=== PATIENT | female | born 1995 | race Caucasian/White ===

== ENCOUNTER → 2019-06-03 15:52 | Outpatient (CLI) | payer OTHER ==
[2016-05-13 06:46] VITALS: BMI 23.5
[~2019-06-03 15:52] MED LIST: IBUPROFEN600 MG PO; PERCOCET 5-3251 TAB PO; PRENATAL COMPLE1 TAB PO
== END | disposition home or self-care (01) ==
LOC: D.LDO 15:52
PROVIDERS: ATTEND Student in an Organized Health Care Education/Training Program
DX: O36.5990 Maternal care for other known or suspected poor fetal growth, unspecified trimester, not applicable or unspecified (principal)

== ENCOUNTER → 2019-06-08 17:31 | Outpatient (CLI) | payer OTHER ==
[2016-05-13 06:46] VITALS: BMI 23.5
== END | disposition home or self-care (01) ==
LOC: D.LDO 17:31
PROVIDERS: ATTEND Student in an Organized Health Care Education/Training Program
DX: O36.8130 Decreased fetal movements, third trimester, not applicable or unspecified (principal); Z3A.36 36 weeks gestation of pregnancy

== ENCOUNTER 2019-06-09 19:24 | Outpatient (CLI) | payer OTHER ==
[2016-05-13 06:46] VITALS: BMI 23.5
== END 2019-06-09 20:16 | disposition home or self-care (01) ==
LOC: D.LDO 19:24
PROVIDERS: ATTEND Obstetrics & Gynecology
DX: O36.5990 Maternal care for other known or suspected poor fetal growth, unspecified trimester, not applicable or unspecified (principal); Z3A.00 Weeks of gestation of pregnancy not specified

== ENCOUNTER → 2019-06-17 16:15 | Outpatient (CLI) | payer OTHER ==
[2016-05-13 06:46] VITALS: BMI 23.5
== END | disposition home or self-care (01) ==
LOC: D.LDO 16:15
PROVIDERS: ATTEND Student in an Organized Health Care Education/Training Program
DX: O36.5930 Maternal care for other known or suspected poor fetal growth, third trimester, not applicable or unspecified (principal); Z3A.34 34 weeks gestation of pregnancy

== ENCOUNTER → 2019-07-08 20:45 | Outpatient (CLI) | payer OTHER ==
[2016-05-13 06:46] VITALS: BMI 23.5
== END ==
LOC: D.LDO 20:45
PROVIDERS: ATTEND Obstetrics & Gynecology
DX: O36.5930 Maternal care for other known or suspected poor fetal growth, third trimester, not applicable or unspecified (principal); Z3A.37 37 weeks gestation of pregnancy

== ENCOUNTER 2019-07-14 05:06 | Inpatient (IN) | payer OTHER ==
[2019-07-14] VITALS (12 sets, daily range): BP systolic 98–114; BP diastolic 57–75; Ht 165.1 cm; Wt 72.1 kg
[~2019-07-14] VITALS: Ht 165.1 cm; Wt 72.1 kg
--- NOTE | ~2019-07-14 | OP ---
PATIENT NAME: BRANDY FOSTER MEDICAL RECORD: [id number] :[birth year] LOCATION:[place] D.1223 ADMISSION DATE:07/14/19 SURGEON: ALEXSANDRA HER DO DATE OF OPERATION: 07/14/2019 PREOPERATIVE DIAGNOSIS: Intrauterine growth restriction, previous section. POSTOPERATIVE DIAGNOSES: 1. Intrauterine growth restriction, previous section. 2. Intra-abdominal adhesions. PRIMARY SURGEON: Alexsandra Her DO ANESTHESIA: Spinal. PROCEDURE: Repeat low transverse section via Pfannenstiel incision. FINDINGS: Female , weight 5 pounds, Apgars 8 and 9, born at 0810. Normal appearing placenta, normal appearing uterus, bilateral fallopian tubes, bilateral ovaries. Extensive adhesions of the uterus to the anterior abdominal wall. SPECIMENS: Placenta and cord. ESTIMATED BLOOD LOSS: 900 cc. IV FLUIDS: 1800 cc. URINE OUTPUT: 525 cc of clear urine. COMPLICATIONS: None. CONDITION: Stable. DESCRIPTION OF PROCEDURE: The risks, benefits, alternatives and indications of the procedure were discussed with the patient. She voiced understanding of the procedure and signed the consent. She was taken to the OR where spinal anesthesia was administered and found to be adequate. She was placed in the dorsal supine position with leftward tilt. She was prepped and draped in normal sterile fashion. A Pfannenstiel skin incision was made with a scalpel and carried down to the underlying layer of the fascia with the Bovie. Fascia was incised at the midline and extended laterally. The inferior aspect of the fascial incision was grasped with Sunil clamps and the rectus muscle was dissected off sharply. Attention was then turned to the superior aspect of the fascial incision. The rectus muscle was dissected off in a similar fashion. The rectus muscle was in the midline down to the level of the peritoneum. The peritoneum was identified and noted to be free of adherent bowel and entered bluntly. There were extensive adhesions of the anterior uterus to the anterior abdominal wall, which were dissected off with a combination of blunt and sharp dissection. A bladder flap was created and a bladder blade was then inserted. The uterus was incised in a transverse fashion in the lower uterine segment. The incision was extended with cephalad caudad traction. The 's head was brought to the incision and the infant delivered without difficulty. Mouth and nose were suctioned. Cord was clamped OPERATIVE REPORT [id number] BRANDY FOSTER and paulo. The infant was handed off to waiting pediatricians. The placenta was manually removed. The uterus was exteriorized and a moist lap was used to assure complete removal of placenta membranes. The hysterotomy was closed with 0 Vicryl in a running locked fashion with good hemostasis. The adhesions of the anterior uterus to the anterior abdominal wall were noted to be bleeding and were ligated with suture and fibrillar was placed for hemostasis. Good hemostasis was noted. Uterus, tubes, and ovaries were noted to be normal and the posterior cul-de-sac was irrigated with warm sterile water. The uterus, tubes and ovaries were returned back to the abdominal cavity. The hysterotomy was reinspected and noted to be hemostatic. A moist laparotomy sponge was used to assure complete removal of blood clots and fluid from the abdominal cavity. The rectus muscle was closed with 2-0 Monocryl in a running fashion with good hemostasis. The fascial incision was closed with 0 Vicryl in a running fashion with good hemostasis, the subcutaneous fat was closed with 2-0 plain suture. The skin was closed in a subcutaneous fashion with 3-0 Monocryl with Dermabond covering. All needle, lap, sponge, and instrument counts were correct times 2. The patient tolerated the procedure well and she was taken to the recovery room in stable condition. TRANSINT:[id number] Voice Confirmation ID: [id number] DOCUMENT ID: [id number] ALEXSANDRA HER DO CC: [id number] DICTATION DATE: 07/14/19913 STATEMENT PROCESSOR: 07/14/19 1342 ADM IN [facility] [id number] [place] [address]
[2019-07-14 06:13] LABS: HEMATOCRIT 33.9 % (36.0-48.0); HEMOGLOBIN 11.1 g/dL (12-16); MCH 28.6 pg (26.0-34.0); MCHC 32.7 g/dL (31.0-37.0); MCV 87.4 fL (80.0-100.0); MEAN PLATELET VOLUME 11.1 fL (7.4-10.4); RBC 3.88 10x6/uL (4.00-5.40); RDW 13.5 % (11.5-14.5); WBC 13.2 10x3/uL (4.8-10.8)
--- NOTE | 2019-07-14 06:40 | NUR ---
ania (PJ) here for pre op teaching
--- NOTE | 2019-07-14 09:30 | NUR ---
0910 RECEIVED PATIENT AWAKE AND ALERT. FUNDUS 1 FINGERWIDTH BELOW UNBILICUS, FIRM AMD MIDLINE. ICE PACK PLACE ON INCISION SITE.
--- NOTE | 2019-07-14 09:58 | NUR ---
RECEIVED PT FROM VIA BED TO ROOM 1223. BED LOCKED AND PLACED IN LOW POSITION. PT AWAKE, AAO X 3. VSS. HRRR WITHOUT AUDIBLE MURMUR. BBS CLEAR. BS HYPOACTIVE X 4. ABDOMEN SOFT/NON-DISTENDED. FUNDUS FIRM AT U/1. RUBRA LOCHIA SMALL AMT. SMALL DIME SIZED CLOT NOTED ON PERIPAD. NEG HOMANS' SIGN. PPP. NO EDEMA NOTED TO BLE. SCDS ON BLE. PUMP ON. GRANT TO GRAVITY DRAINING DARK, YELLOW URINE. PIV SITE CLEAR TO RIGHT HAND. NS WITH PITOCIN INFUSING AT 125 ML/HR. PT C/O INCISIONAL PAIN OF "7" ON 0-10 PAIN SCALE. ABDOMINAL DRESSING DRY WITH CIRCLED AREA OF DRAINAGE NOTED. ICE PACK TO INCISION. PT ORIENTED TO ROOM, BED, AND CALL LIGHT. SR UP X2. CALL LIGHT IN REACH.
--- NOTE | 2019-07-14 10:05 | NUR ---
PT C/O INCISIONAL PAIN OF "7" ON 0-10 PAIN SCALE. TORADOL 30 MG GIVEN SIVP OVER 2 MINUTES. PT INSTRUCTED ON MED. VERBALIZES UNDERSTANDING.
--- NOTE | 2019-07-14 10:40 | NUR ---
PT DENIES NAUSEA. STATES PAIN NOW "4" ON 0-10 PAIN SCALE. REQUESTS AND RECEIVES [place]ON [place] [employer] [place].
--- NOTE | 2019-07-14 11:15 | NUR ---
PT IN SEMI-PALOMARES'S POSITION IN BED. HOLDS WITH MUCH WARMTH SHOWN. VSS. STATES PAIN NOW "4" ON 0-10 PAIN SCALE. DENIES NEEDS OR C/O.
--- NOTE | 2019-07-14 12:00 | NUR ---
PT SITTING UP IN BED. HOLDS WITH MUCH WARMTH SHOWN. DENIES NEEDS OR C/O.
--- NOTE | 2019-07-14 13:18 | NUR ---
PT SITTING UP IN BED. CONSUMING CLEAR LIQUID DIET. TOLERATING WELL. VSS. PT DENIES C/O OR NEEDS. STATES PAIN NOW "3" ON 0-10 PAIN SCALE. DECLINES PAIN MED AT THIS TIME. STATES "I WILL WAIT".
--- NOTE | 2019-07-14 14:03 | NUR ---
PT CHIEF DESIGN ENGINEER LIGHT. REQUESTS AND RECEIVES MORPHINE 4 MG SIVP OVER 2 MINUTES FOR C/O INCISIONAL PAIN OF "7" ON 0-10 PAIN SCALE. PT INSTRUCTED ON MED. VERBALIZES UNDERSTANDING.
--- NOTE | 2019-07-14 14:28 | NUR ---
PT SITTING UP IN BED. ATTEMPTING TO BREASTFEED AT THIS TIME. STATES PAIN MEDICATION STARTING TO RELIEVE PAIN.
--- NOTE | 2019-07-14 15:31 | NUR ---
PT LYING IN SEMI-PALOMARES'S POSITION. WAKES UPON ENTERING ROOM. STATES PAIN NOW "3" ON 0-10 PAIN SCALE. DENIES NEEDS OR C/O.
--- NOTE | 2019-07-14 17:00 | NUR ---
VSS. FUNDUS FIRM AT U/1. ERIN HEATH AMT. PERICARE DONE. CHUX AND PERIPAD CHANGED. I/O COMPLETED.
--- NOTE | 2019-07-14 17:08 | NUR ---
PT C/O INCISIONAL PAIN OF "8" ON 0-10 PAIN SCALE. TORADOL 30 MG GIVEN SIVP OVER 2 MINUTES. PT INSTRUCTED ON MED. VERBALIZES UNDERSTANDING. VSS.
--- NOTE | 2019-07-14 18:30 | NUR ---
DR GARLAND NOTIFIED THAT DR MARTINEZ DID NOT PUT IN ORDERS TO DC GRANT, SL IV, START PO PAIN MEDS, ETC PER HER ROUTINE ORDERS. ORDERS RECEIVED.
--- NOTE | 2019-07-14 18:30 | NUR ---
PT SITTING UP IN BED. CARING FOR INFANT. STATES PAIN MED RELIEVING PAIN. DECLINES ADDITIONAL PAIN MED AT THIS TIME.
--- NOTE | 2019-07-14 19:00 | NUR ---
reCEIVED REPORT FROM FELTON RUIZ
--- NOTE | 2019-07-14 19:48 | NUR ---
PT C/O PAIN AT INCISION SITE RATED A 9. MORPHINE 4 MG GIVEN IV
--- NOTE | 2019-07-14 19:50 | NUR ---
MORPHINE 4 MG GIVEN IV FOR PAIN. ASSESSMENT COMPLETED. HEART SOUNDS WNL, LUNGS CLEAR,BOWEL SOUNDS FAINT. FUNDUS IS FIRM ONE BELOW. LOCHIA SMALL. DRESSING DRY AND INTACT. PT IV IN THE RIGHT ARM RUNNING at 100ml/hr IS AT BEDSIDE. GRANT CATHETER DRAINING PINK URINE.
--- NOTE | 2019-07-14 21:00 | NUR ---
RESTING WELL. STATES SHE STILL HAS PAIN.
[2019-07-15] VITALS: BP 118/67
--- NOTE | 2019-07-15 | NUR ---
PT RECEIVED 4 MG MORPHINE FOR PAIN. VS STABLE. IV HAS BEEN SALINE LOCKED. GRANT STILL IN PLACE. NO OTHER ISSUES BUT PAIN AT THIS TIME.
--- NOTE | 2019-07-15 02:00 | NUR ---
PT TRYING TO REST. STILL WITH PAIN.
[2019-07-15 04:00] VITALS: BP 97/59
--- NOTE | 2019-07-15 04:00 | NUR ---
PAIN MEDS GIVEN MORPHINE 4 MF IV. GRANT CATHETER REMOVED. PT AMBULATED TO THE BATHROOM BUT DIDN'T NEED TO GO. BACK TO BED. MOVING WAS VERY PAINFUL FOR HER. DRESSING DRY AND INTACT. FUNDUS FIRM. PT WAS CLEANED UP WITH WARM WASHCLOTHES AND A NEW PAD APPLIED.JUDHIA SMALL.
--- NOTE | 2019-07-15 05:30 | NUR ---
PT UP AGAIN TO TRY TO VOID. WALKED TO BR. UNABLE TO VOID AT THIS TIME.
[2019-07-15 06:36] LABS: BASOPHILS 0.2 % (0-2); EOSINOPHILS 0.8 % (0-7); HEMATOCRIT 28.8 % (36.0-48.0); HEMOGLOBIN 9.1 g/dL (12-16); IMMATURE GRANULOCYTES 0.3 % (0-5); LYMPHOCYTES 19.2 % (15-50); MCH 27.9 pg (26.0-34.0); MCHC 31.6 g/dL (31.0-37.0); MCV 88.3 fL (80.0-100.0); MEAN PLATELET VOLUME 10.4 fL (7.4-10.4); MONOCYTES 7.2 % (2-11); NEUTROPHILS 72.3 % (40-80); RBC 3.26 10x6/uL (4.00-5.40); RDW 13.4 % (11.5-14.5); WBC 11.6 10x3/uL (4.8-10.8)
[2019-07-15 06:37] LABS: PLATELET COUNT 193 10x3/uL (130-400)
[2019-07-15 07:13] LABS: RAPID PLASMA REAGIN Non Reactive (Non Reactive)
[2019-07-15 07:45] VITALS: BP 138/84
--- NOTE | 2019-07-15 07:54 | NUR ---
DR. MARTINEZ IN ROOM SPEAKING WITH PT. Keren MAHMOOD, FELTON INFORMS MD OF PT'S C/O PAIN EVEN WITH THE MORPHINE.
--- NOTE | 2019-07-15 09:25 | MORECARE ---
CASE MANAGEMENT DISCHARGE SUMMARY PATIENT: BRANDY FOSTER UNIT: [id number] ADM DATE: 07/14/19 AGE: 23 : 95 SEX: F ROOM/BED: D.1223 AUTHOR: DINESH HECTOR PHYSICIAN: REFERRING PHYSICIAN: ALEXSANDRA MARTINEZ DO DATE OF SERVICE: 07/15/19 Discharge Plan Patient Name: BRANDY FOSTER Facility: [facility]:[place] : 1995 Planned Disposition: Anticipated Discharge Date: Discharge Date: Expected LOS: Initial Reviewer: [email or web address] Initial Review Date: 07/14/2019 Generated: 07/15/19 10:25 am Patient Name: BRANDY FOSTER Page [phone] at 0925 All edits/amendments must be made on the electronic document DICTATION DATE: 07/15/19924 GLASS MELT OPERATOR: JANEEN 07/15/19924 RPT#: [id number] DC DATE: STATUS: ADM IN [facility] [address] [place] [address] END OF REPORT
--- NOTE | 2019-07-15 10:30 | NUR ---
PT CALLS OUT LINE PAINTING MACHINE OPERATOR LIGHT TO GET UP TO THE BATHROOM. ASSISTED PT UP TO BR, GAIT STEADY, PT THEN VOIDS 400 ML'S IN MAINE HAT, PERICARE DONE WITH WARM WASHCLOTHS, PERIPADS/PANTIES ON, CLEAN GOWN ON, BED LINENS CHANGED WHILE PT UP TO BR. PT THEN BACK TO BED, SRUP X2, CALL LIGHT AND PHONE WITHIN REACH. NEW ICE PACK PLACED OVER GOWN TO INCISION. LARGE ICE WATER SERVED TO PT.
--- NOTE | 2019-07-15 18:15 | NUR ---
DR. MARTINEZ IN ROOM SPEAKING WITH PT.
--- NOTE | 2019-07-15 18:20 | NUR ---
VERBAL ORDER RECEIVED TO ADD GABAPENTIN FOR PAIN CONTROL.
--- NOTE | 2019-07-15 19:30 | NUR ---
RECEIVED REPORT FROM FELTON MADDEN
--- NOTE | 2019-07-15 19:35 | NUR ---
REPORT GIVEN TO Keren MAHMOOD RN
[2019-07-15 20:00] VITALS: BP 116/67
--- NOTE | 2019-07-15 20:00 | NUR ---
ASSESSMENT OF PT COMPLETE. PT IS STILL HURTING. SHE HAS NOT BEEN UP MUCH WALKING. INCISION IS CLEAN AND DRY. NO DRAINAGE FROM DRESSING. FUNDUS IS FIRM. HEART SOUNDS WNL. LUNGS CLEAR, BOWEL SOUNDS HEARD, SKIN IS WARM AND DRY. PT IS WORRIED ABOUT HER BABY WHO IS IN [place]. PT DID NOT EAT HER DINNER TONIGHT. SHE STATES SHE DIDIN'T LIKE IT. I OFFERED HER A SANDWICH WHICH SHE TOOK BUT ONLY ATE THE ORANGES OUT OF IT. PT HAS A FRIEN WHO IS SPENDING THE NIGHT WITH HER WHILE IS IN LR.
--- NOTE | 2019-07-15 22:00 | NUR ---
PT RESTING QUIETLY WITHOUT C/O.
--- NOTE | 2019-07-15 23:30 | NUR ---
PT CALLED RN TO ROOM TO TELL ME SHE HAD A MIGRAINE HEADACHE. SHE IS VOMITING FROM THE HEADACHE. CALLED DR. MARTINEZ AND TOOK TELEPHONE ORDERS.
[2019-07-16] VITALS: BP 110/67
--- NOTE | 2019-07-16 00:22 | NUR ---
VS TAKEN AND STABLE. PO MEDS GIVEN FOR HEADACHE PAIN AND NAUSEA/VOMITING.
--- NOTE | 2019-07-16 02:00 | NUR ---
PT RESTING IN ROOM. SHE STATES PAIN IS A LITTLE BETTER. NO N/V AT THIS TIME. A NEW ICE PACK WAS TAKEN TO PT TO PLACE ON HER INCISION.
[2019-07-16 04:10] VITALS: BP 116/63
--- NOTE | 2019-07-16 04:10 | NUR ---
PT SLEEPING. AWAKE FOR VS. PT STATES HEAD FEELS BETTER. NO MORE N/V.
[2019-07-16 06:49] LABS: BASOPHILS 0.1 % (0-2); EOSINOPHILS 0.6 % (0-7); HEMATOCRIT 27.8 % (36.0-48.0); HEMOGLOBIN 8.8 g/dL (12-16); IMMATURE GRANULOCYTES 0.2 % (0-5); LYMPHOCYTES 20.6 % (15-50); MCH 27.9 pg (26.0-34.0); MCHC 31.7 g/dL (31.0-37.0); MCV 88.3 fL (80.0-100.0); MEAN PLATELET VOLUME 10.4 fL (7.4-10.4); MONOCYTES 6.3 % (2-11); NEUTROPHILS 72.2 % (40-80); PLATELET COUNT 206 10x3/uL (130-400); RBC 3.15 10x6/uL (4.00-5.40); RDW 13.4 % (11.5-14.5); WBC 9.5 10x3/uL (4.8-10.8)
[2019-07-16 08:50] VITALS: BP 102/62
--- NOTE | 2019-07-16 08:50 | NUR ---
RECEIVED PT SITTING UP IN BED. AWAKE. AAO X 3. VSS. HRRR WITHOUT AUDIBLE MURMUR. BBS CLEAR. BS X 4. ABDOMEN SOFT/NON-DISTENDED. FUNDUS FIRM AT U/1. RUBRA LOCHIA SMALL AMT. NO CLOTS NOTED. NEG HOMANS' SIGN. PPP. NO EDEMA NOTED TO BLE. ABDOMINAL INCISION OPEN TO AIR; DERMABOND NOTED. NO REDNESS, SWELLING OR DRAINAGE NOTED. PT C/O H/A AND CRAMPING OF "7" ON 0-10 PAIN SCALE. PT STATES PASSING GAS. NO BM YET. SR UP X 2. CALL LIGHT IN REACH.
--- NOTE | 2019-07-16 09:05 | NUR ---
PERCOCET 5/325 2 TABS GIVEN PO ORDERED. PT ALSO GIVEN MYLICON 80 MG TABLET. PT INSTRUCTED ON MEDS. VERBALIZES UNDERSTANDING.
--- NOTE | 2019-07-16 09:10 | NUR ---
PT ENCOURAGED TO EAT SOME BREAKFAST. OFFERED OTHER FOOD CHOICES. PT DECLINES. PT INFORMED THAT DR MARTINEZ HAS ORDERED IRON FOR PT AND PT NEEDS SOMETHING ON STOMACH BEFORE TAKING IT. PT VERBALIZES UNDERSTANDING.
--- NOTE | 2019-07-16 10:12 | NUR ---
PT SITTING UP IN BED. WAKES UPON ENTERING ROOM. STATES PAIN IMPROVED, BUT STATES "THE SCREENS STILL HURT ME". PT ENCOURAGED TO EAT SOME BREAKFAST. PT STATES "I FELL ASLEEP".
--- NOTE | 2019-07-16 11:34 | NUR ---
PT UP TO SHOWER. LINENS PROVIDED. FAMILY WITH PT TO ASSIST WITH SHOWER.
--- NOTE | 2019-07-16 12:14 | NUR ---
PT FINISHED WITH SHOWER. STATES H/A CONTINUES. STATES LIGHT, TV AND PHONE SCREENS ARE BOTHERSOME TO PT. PT STATES H/A HAS NOT GONE AWAY. STATES WAKES UP FROM SLEEP DUE TO PAIN MED AND H/A IS STILL THERE.
--- NOTE | 2019-07-16 12:15 | NUR ---
PT STATES H/A STARTED EARLY YESTERDAY MORNING. PT STATES LYING DOWN HELPS TO RELIEVE H/A, BUT DOESN'T GO AWAY. DR CHRISTOPHER DOUGLASS.
--- NOTE | 2019-07-16 12:22 | NUR ---
DR MARTINEZ VISITS WITH PT.
--- NOTE | 2019-07-16 13:29 | NUR ---
LR 1000 ML UP AT BOLUS RATE. PIV SITE CLEAR. PT C/O H/A OF "7" ON 0-10 PAIN SCALE. FIORCET 1 TAB GIVEN PO ORDERED. PT INSTRUCTED ON MED. VERBALIZES UNDERSTANDING.
--- NOTE | 2019-07-16 14:47 | NUR ---
PT C/O H/A. ULTRAM 50 MG GIVEN PO ORDERED. PT INSTRUCTED ON MED. VERBALIZES UNDERSTANDING.
--- NOTE | 2019-07-16 15:01 | NUR ---
DR MARTINEZ CALLS. PT STATUS REPORT GIVEN. INFORMED THAT DR WHITE CLEARED PT AND GAVE RX FOR ULTRAM. STATES TO ASK PT IF PT WANTS TO STAY ANOTHER DAY OR GO HOME. PT TO BE OFFERED TO STAY IF DESIRES.
--- NOTE | 2019-07-16 15:03 | NUR ---
THIS NURSE TO ROOM. PT AND MOTHER IN ROOM. INFORMED PT THAT DR MARTINEZ WANTS TO KNOW WHAT PT WANTS TO DO FAR STAYING ANOTHER NIGHT OR DISCHARGING HOME TODAY. PT INSTRUCTED TO BE HONEST AND THAT PT CAN STAY TONIGHT IF PT WANTS. PT STATES "I WANT TO GO HOME". PT MOTHER STATES "I THINK SHE WILL BE FINE IF SHE CAN GO SEE HER BABY".
--- NOTE | 2019-07-16 15:10 | NUR ---
DR MARTINEZ NOTIFIED THAT PT DESIRES TO GO HOME. ORDERS RECEIVED.
[2019-07-16] MEDS ORDERED: FERROUS SULFAT325 MG PO (15:14)
[2019-07-16] MEDS ORDERED: ULTRAM50 MG PO (15:15)
[2019-07-16] MEDS ORDERED: PERCOCET 5-3251 TAB PO (15:15)
--- NOTE | 2019-07-16 16:40 | NUR ---
PT CALLS ON LIGHT. THIS NURSE TO ROOM. PT STATES C/O RASH ON LEFT WRIST. 3-4 SMALL RAISED AREAS NOTED WITH REDNESS. PT STATES "I'VE BEEN SCRATCHING AT IT". REDDENED AREA NOTED TO PT BACK. APPEARS TO LOOK LIKE THE SHEET PRINT. PT MOTHER AGREES. STATES "I THINK THAT IS FROM HER LAYING ON THE SHEET BECAUSE IT LOOKS LIKE THE SHEET". PT STATES BACK IS NOT ITCHING. DR MARTINEZ NOTIFIED. INFORMED THAT ID BANDS ARE ALL ON PT RIGHT ARM, NOT LEFT. STATES THINKS IT'S CONTACT RELATED IT'S ONLY IN ONE AREA AND NOT SPREADING. ORDER RECEIVED AND TO CONTINUE WITH DISCHARGE. NOTIFY PT THAT IF TAKE ANOTHER DOSE OF TRAMADOL AND RASH APPEARS AGAIN TO DC TRAMADOL.
--- NOTE | 2019-07-16 16:52 | NUR ---
BENADRYL 50 MG GIVEN PO ORDERED. PT INSTRUCTED ON MED. VERBALIZES UNDERSTANDING.
--- NOTE | 2019-07-16 16:55 | NUR ---
DISCHARGE INSTRUCTIONS GIVEN TO PT PT VERBALIZES UNDERSTANDING OF ALL INSTRUCTIONS. COPIES GIVEN TO PT. PT GIVEN RX FOR TRAMADOL AND PERCOCET. PT PREPARES FOR DISCHARGE.
--- NOTE | 2019-07-16 17:15 | NUR ---
PT READY FOR DISCHARGE. DISCHARGED IN STABLE CONDITION VIA WHEELCHAIR TO PRIVATE VEHICLE. PT KIMBERLY WELL.
--- NOTE | 2019-07-19 09:25 | MORECARE ---
CASE MANAGEMENT DISCHARGE SUMMARY PATIENT: BRANDY FOSTER UNIT: [id number] ADM DATE: 07/14/19 AGE: 23 : 95 SEX: F ROOM/BED: D.1223 AUTHOR: DINESH HECTOR PHYSICIAN: REFERRING PHYSICIAN: ALEXSANDRA MARTINEZ DO DATE OF SERVICE: 07/19/19 Discharge Plan Patient Name: BRANDY FOSTER Facility: [facility]:[place] : 1995 Planned Disposition: Anticipated Discharge Date: Discharge Date: 07/16/2019 Expected LOS: Initial Reviewer: [email or web address] Initial Review Date: 07/14/2019 Generated: 07/19/19 10:25 am Last DP export: 07/15/19 8:25 a Patient Name: BRANDY FOSTER Page [phone] at 0925 All edits/amendments must be made on the electronic document DICTATION DATE: 07/19/19924 ELECTRONIC TECHNOLOGIST: JANEEN 07/19/19924 RPT#: [id number] DC DATE:07/16/19 STATUS: DIS IN [facility] [address] [place] [address] END OF REPORT
== END 2019-07-16 17:15 | disposition home or self-care (01) | DRG 788 ==
LOC: D.WS 05:06 → D.LD 05:06 → D.WS 09:03
PROVIDERS: ADMIT Student in an Organized Health Care Education/Training Program; ATTEND Student in an Organized Health Care Education/Training Program
PROC: 10D00Z1 Extraction of Products of Conception, Low, Open Approach (ICD-10-PCS; principal; 2019-07-14 07:00)
DX: O36.5930 Maternal care for other known or suspected poor fetal growth, third trimester, not applicable or unspecified (principal); Z3A.38 38 weeks gestation of pregnancy; Z37.0 Single live birth; N73.6 Female pelvic peritoneal adhesions (postinfective); O75.9 Complication of labor and delivery, unspecified; T88.59XA Other complications of anesthesia, initial encounter; Y84.9 Medical procedure, unspecified as the cause of abnormal reaction of the patient, or of later complication, without mention of misadventure at the time of the procedure

== ENCOUNTER 2019-07-18 14:48 | Emergency (ER) | payer OTHER ==
[~2019-07-18] VITALS: Ht 165.1 cm; Wt 68.2 kg
[~2019-07-18 14:48] MED LIST changes: +FERROUS SULFAT325 MG PO; +ULTRAM50 MG PO
[2019-07-18 14:56] VITALS: Ht 165.1 cm; Wt 68.2 kg
[2019-07-18 19:25] VITALS: BP 107/71
== END 2019-07-18 19:26 | disposition home or self-care (01) ==
LOC: D.ER 14:48
DX: O89.4 Spinal and epidural anesthesia-induced headache during the puerperium (principal)